=== PATIENT | female | born 1995 | race Caucasian/White ===

== ENCOUNTER 2019-11-05 12:29 | Emergency (ER) | payer OTHER ==
[~2019-11-05] VITALS: Ht 182.9 cm; Wt 83.1 kg
[~2019-11-05 12:29] MED LIST: AMOX250CH PO; AZIT200SU PO; METPHE18ER; MONT5TCH; ONDA4ODT MM
== END 2019-11-05 14:30 | disposition home or self-care (01) ==
LOC: ER 12:29
DX: L84 Corns and callosities (principal)
CPT/HCPCS: 82947; 99283